=== PATIENT | male | born 1975 | race African-American/Black ===

== ENCOUNTER 2018-03-10 11:34 | Outpatient (CLI) | payer MEDICAID ==
[~2018-03-10 11:34] MED LIST: KEP500T PO; NO HOME MEDS
== END 2018-03-10 23:59 | disposition home or self-care (01) ==
LOC: RAD 11:34
DX: R41.3 Other amnesia (principal); Z87.891 Personal history of nicotine dependence
CPT/HCPCS: 95819

== ENCOUNTER 2019-02-05 04:26 | Inpatient (IN) | payer MEDICAID ==
[2019-02-05] VITALS (8 sets, daily range): BP systolic 124–145; BP diastolic 61–86
[~2019-02-05] VITALS: Ht 185.4 cm; Wt 79.0 kg
[2019-02-05] MEDS ORDERED: normal saline 1000ML IV soln IVB ONE ×2 (04:40→06:10)
[2019-02-05 05:04] LABS: EOSINOPHILS % (AUTO) 0 % (0-6); HEMOGLOBIN 14.6 g/dl (14.0-17.9)
[2019-02-05 05:05] LABS: BASOPHILS % (AUTO) 0.1 % (0-1); LYMPHOCYTES # (AUTO) 2.1 X10'3 (1.1-4.8); LYMPHOCYTES % (AUTO) 12.3 % (21-51); MEAN CORPUSCULAR HEMOGLOBIN 27.1 PG (27.0-31.0); MEAN CORPUSCULAR HGB CONC 32.3 g/dL (33.0-36.5); MEAN CORPUSCULAR VOLUME 83.9 FL (78-98); MEAN PLATELET VOLUME 11.4 FL (7.4-10.4); MONOCYTES # (AUTO) 1.4 X10'3 (0-0.9); MONOCYTES % (AUTO) 8.5 % (2-12); NEUTROPHILS # (AUTO) 13.5 X10'3 (1.8-7.7); NEUTROPHILS % (AUTO) 79.1 % (42-75); PLATELET COUNT 122 X10'3 (140-440); RED BLOOD COUNT 5.36 X10'6 (4.70-6.10); WHITE BLOOD COUNT 17.1 X10'3 (4.5-11.0)
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
[2019-02-05 05:20] LABS: ALANINE AMINOTRANSFERASE 34 U/L (12-78); ALBUMIN 4.7 G/DL (3.4-5.0); ALKALINE PHOSPHATASE 68 IU/L (46-116); ANION GAP 17 (8-16); ASPARTATE AMINO TRANSFERASE 44 U/L (10-37); BILIRUBIN,TOTAL 1.1 MG/DL (0.1-1.0); BLOOD UREA NITROGEN 22 MG/DL (7-18); BUN/CREATININE RATIO 14.3 (5.4-32.0); CALCIUM 10.4 MG/DL (8.5-10.1); CHLORIDE 108 MMOL/L (99-107); CREATINE KINASE 992 U/L (39-308); CREATININE 1.54 MG/DL (0.60-1.10); GLUCOSE 104 MG/DL (70-104); MAGNESIUM 2.5 MG/DL (1.5-2.4); SODIUM 150 MMOL/L (135-145); TOTAL CARBON DIOXIDE 25.4 MMOL/L (24-32); TOTAL PROTEIN 9.2 G/DL (6.4-8.2); eGFR 60 ML/MIN
[2019-02-05 05:29] LABS: ACETAMINOPHEN < 2.0 UG/ML (10-30); ETHANOL < 0.010 GM/DL (0.0-0.010)
[2019-02-05] MEDS ORDERED: ziprasidone IM 20mg inj **IM only IM ONE (05:30)
[2019-02-05] MEDS ORDERED: LORazepam 2 mg/ml vial IM ONE (05:30)
[2019-02-05 05:33] LABS: POTASSIUM 7.1 MMOL/L (3.5-5.1)
[2019-02-05] MEDS ORDERED: albuterol 2.5 MG/3 ML nebule NEB ONE (06:15)
[2019-02-05] MEDS ORDERED: dextrose 50%-water 50ml dispensing syringe IV ONE ×3 (06:15→08:15)
[2019-02-05] MEDS ORDERED: insulin regular, human 10 units/0.1 ml syringe IV ONE (06:15)
[2019-02-05] MEDS ORDERED: LORazepam 2 mg/ml vial IV PRN ×2 (06:55)
[2019-02-05] MEDS ORDERED: acetaminophen 325mg tablet PO PRN ×4 (06:55→09:30)
[2019-02-05] MEDS ORDERED: magnesium hydroxide 30ml (MOM) UD suspension PO PRN (06:55)
[2019-02-05] MEDS ORDERED: ziprasidone IM 20mg inj **IM only IM PRN (06:55)
[2019-02-05] MEDS ORDERED: ondansetron/PF 4mg/2ml inj IV PRN ×2 (06:55→09:30)
[2019-02-05 07:02] LABS: CLARITY,URINE SLIGHTLY CLOUDY (Clear); COLOR,URINE YELLOW (Yellow); GLUCOSE, URINE NEGATIVE (Neg); KETONES,URINE 15 mg/dl (Neg); LEUKOCYTE ESTERASE ,URINE NEGATIVE (Neg); NITRITES, URINE NEGATIVE (Neg); OCCULT BLOOD,URINE MODERATE (Neg); PROTEIN,URINE 30 mg/dl (Neg); UROBILINOGEN,URINE 0.2 E.U/dL (0.2-1.0)
[2019-02-05 07:04] LABS: UA COLLECTION TYPE FOLEY CATH
[2019-02-05 07:14] LABS: MUCUS STRANDS FEW /LPF (Neg); SQUAMOUS EPITHELIAL CELL,UR FEW /LPF (FEW)
[2019-02-05 07:16] LABS: SPERM MANY /HPF (NEGATIVE)
[2019-02-05 07:17] LABS: URINE AMPHETAMINE SCREEN POSITIVE (Neg); URINE BARBITUATE SCREEN NEGATIVE (Neg); URINE BENZODIAZEPINES SCREEN NEGATIVE (Neg); URINE CANNABINOID SCREEN POSITIVE (Neg); URINE COCAINE SCREEN NEGATIVE (Neg); URINE METHADONE SCREEN NEGATIVE (Neg); URINE OPIATE SCREEN NEGATIVE (Neg); URINE PHENCYCLIDINE SCREEN NEGATIVE (Neg)
[2019-02-05 07:20] LABS: BACTERIA,URINE 1+ /HPF (Neg)
[2019-02-05 07:25] LABS: ALANINE AMINOTRANSFERASE 33 U/L (12-78); ALBUMIN 3.6 G/DL (3.4-5.0); ALKALINE PHOSPHATASE 52 IU/L (46-116); ANION GAP 10 (8-16); ASPARTATE AMINO TRANSFERASE 48 U/L (10-37); BILIRUBIN,TOTAL 0.9 MG/DL (0.1-1.0); BLOOD UREA NITROGEN 22 MG/DL (7-18); BUN/CREATININE RATIO 16.7 (5.4-32.0); CALCIUM 8.1 MG/DL (8.5-10.1); CHLORIDE 104 MMOL/L (99-107); CREATININE 1.32 MG/DL (0.60-1.10); GLUCOSE 186 MG/DL (70-104); POTASSIUM 3.5 MMOL/L (3.5-5.1); SODIUM 139 MMOL/L (135-145); TOTAL CARBON DIOXIDE 24.7 MMOL/L (24-32); TOTAL PROTEIN 7.1 G/DL (6.4-8.2); eGFR 71 ML/MIN
--- NOTE | 2019-02-05 07:29 | NUR ---
CHECKED BG AND IT WAS 20, CHARGE NURSE NOTIFIED, GAVE AN AMP OF DEXTROSE 50, WILL RE-CHECK BG IN 15 MINUTES, 2ND 18 GAUGE LINE IS BEING PLACED.
--- NOTE | 2019-02-05 07:42 | NUR ---
BLOOD GLUCOSE WAS RE-CHECKED AND IS NOW 91, CHARGE NURSE IS AWARE. WILL NOTIFY .
[2019-02-05] MEDS: dextrose 5%-1/2 normal saline 1,000 ML IV SCH ×2 (07:49→14:55)
[2019-02-05] MEDS ORDERED: flumazenil 0.1 mg/ml inj. IV ONE (08:00)
--- NOTE | 2019-02-05 08:05 | NUR ---
B, DR. ALVARADO NOTIFIED OBTAINED VERBAL FOR D50, AND INCREASE RATE TO 250ML/HR OF THE 5% DEXTROSE 1/2 NS. ICU MD GAVE VERBAL FOR D10 NS AT 100ML
[2019-02-05] MEDS ORDERED: sodium chloride inj. 154 MEQ in Dextrose 10%-water IV solution 961.5 ML IV SCH (08:10)
--- NOTE | 2019-02-05 09:00 | NUR ---
REMOVED ONE ANKLE FROM THE RESTRAINTS, WILL CONTINUE TO MONITOR. PT. IS IN NO DISTRESS.
[2019-02-05] MEDS: pantoprazole 40 MG vial IV SCH (09:10)
[2019-02-05] MEDS ORDERED: magnesium 2GM in 50ml NS 50 ML IV PRN (09:30)
[2019-02-05] MEDS ORDERED: magnesium 4gm in 100ml NS 100 ML IV PRN (09:30)
[2019-02-05] MEDS ORDERED: morphine 2 MG/ML inj. syringe IV PRN (09:30)
[2019-02-05] MEDS ORDERED: potassium Cl 20 mEq SR tablet PO PRN (09:30)
[2019-02-05] MEDS ORDERED: cefepime 1GM in D5W 50mL 50 ML IV ONE (09:30)
[2019-02-05] MEDS ORDERED: morphine 4 MG/ML inj SYRINge IV PRN (09:30)
[2019-02-05] MEDS ORDERED: magnesium Cl slow-release 64mg tablet PO PRN (09:30)
[2019-02-05] MEDS ORDERED: sodium phosphate inj. 15 MMOL in dextrose 5%-water 150 ML IV PRN (09:30)
[2019-02-05] MEDS ORDERED: vancomycin/NS 1 GM ADD-VANTAGE 250 ML IV ONE (09:30)
[2019-02-05] MEDS ORDERED: sodium phosphate inj. 30 MMOL in dextrose 5%-water 250 ML IV PRN (09:30)
[2019-02-05] MEDS ORDERED: Neutra Phos packet PO PRN (09:30)
--- NOTE | 2019-02-05 09:35 | NUR ---
BEHAVIORAL RESTRAINTS WERE REMOVED FROM PT. PT. IS NOT VIOLENT, BUT IS SLEEPING. B
[2019-02-05] MEDS ORDERED: ARIP5TAB60 PO (11:36)
[2019-02-05] MEDS ORDERED: SERT100T10 PO (11:36)
[2019-02-05] MEDS ORDERED: ARIP20TA4 PO (11:36)
--- NOTE | 2019-02-05 12:32 | NUR ---
First set of blood cultures obtained, will start abx
--- NOTE | 2019-02-05 13:52 | NUR ---
Patient in room ICU 2046. I have received report from Lita BACH and had the opportunity to ask questions and assume patient care.
[2019-02-05] MEDS: cefepime 1GM in D5W 50mL 50 ML IV SCH ×2 (16:10→23:59)
--- NOTE | 2019-02-05 16:36 | NUR ---
Right AC IV unable to flush/draw, pt complains of pain when attempting to flush. IV removed with cannula intact, dressing applied to site.
--- NOTE | 2019-02-05 18:22 | NUR ---
Problems reprioritized. Patient report given, questions answered & plan of care reviewed with Yuni BACH.
--- NOTE | 2019-02-05 18:30 | NUR ---
Patient in room ICU 2046. I have received report from ISREAL Early and had the opportunity to ask questions and assume patient care.
[2019-02-05] MEDS: heparin, porcine 5000 units/ml vial SQ SCH (20:21)
[2019-02-05] MEDS: sodium chloride inj. 154 MEQ in Dextrose 10%-water IV solution 1,000.0 ML IV SCH (20:21)
[2019-02-05] MEDS: morphine 2 MG/ML inj. syringe IV PRN (20:48)
[2019-02-06] VITALS (17 sets, daily range): BP systolic 113–145; BP diastolic 65–85
[2019-02-06] MEDS: vancomycin/NS 1 GM ADD-VANTAGE 250 ML IV SCH (01:31)
[2019-02-06 05:34] LABS: ALANINE AMINOTRANSFERASE 65 U/L (12-78); ALBUMIN 3.3 G/DL (3.4-5.0); ALBUMIN/GLOBULIN RATIO 0.9 (1.1-1.5); ALKALINE PHOSPHATASE 52 IU/L (46-116); ANION GAP 9 (8-16); ASPARTATE AMINO TRANSFERASE 195 U/L (10-37); BILIRUBIN,TOTAL 1.2 MG/DL (0.1-1.0); BLOOD UREA NITROGEN 10 MG/DL (7-18); BUN/CREATININE RATIO 9.9 (5.4-32.0); CALCIUM 7.8 MG/DL (8.5-10.1); CHLORIDE 109 MMOL/L (99-107); CREATININE 1.01 MG/DL (0.60-1.10); GLUCOSE 116 MG/DL (70-104); MAGNESIUM 2.4 MG/DL (1.5-2.4); PHOSPHORUS 3.4 MG/DL (2.3-4.5); POTASSIUM 3.3 MMOL/L (3.5-5.1); SODIUM 143 MMOL/L (135-145); TOTAL CARBON DIOXIDE 25.5 MMOL/L (24-32); TOTAL PROTEIN 6.8 G/DL (6.4-8.2); eGFR > 90 ML/MIN
[2019-02-06] MEDS: morphine 2 MG/ML inj. syringe IV PRN (05:36)
[2019-02-06] MEDS: sodium chloride inj. 154 MEQ in Dextrose 10%-water IV solution 1,000.0 ML IV SCH (06:11)
--- NOTE | 2019-02-06 06:29 | NUR ---
Problems reprioritized. Patient report given, questions answered & plan of care reviewed with ISREAL Hsu.
--- NOTE | 2019-02-06 06:42 | NUR ---
Patient in room ICU 2046. I have received report from Yuni BACH and had the opportunity to ask questions and assume patient care. Patient awake in bed with no complaints at this time. Sitter present bedside. All immediate needs met.
[2019-02-06 07:21] LABS: BASOPHILS % (AUTO) 0.2 % (0-1); LYMPHOCYTES # (AUTO) 2.1 X10'3 (1.1-4.8); WHITE BLOOD COUNT 14.8 X10'3 (4.5-11.0)
[2019-02-06 07:23] LABS: EOSINOPHILS % (AUTO) 0.1 % (0-6); HEMATOCRIT 41.6 % (42.0-52.0); HEMOGLOBIN 13.7 g/dl (14.0-17.9); LYMPHOCYTES % (AUTO) 14.5 % (21-51); MEAN CORPUSCULAR HEMOGLOBIN 26.7 PG (27.0-31.0); MEAN CORPUSCULAR VOLUME 81.1 FL (78-98); MEAN PLATELET VOLUME 11.7 FL (7.4-10.4); MONOCYTES # (AUTO) 1.5 X10'3 (0-0.9); MONOCYTES % (AUTO) 10.2 % (2-12); NEUTROPHILS # (AUTO) 11.1 X10'3 (1.8-7.7); PLATELET COUNT 108 X10'3 (140-440); RED BLOOD COUNT 5.12 X10'6 (4.70-6.10); RED CELL DISTRIBUTION WIDTH 15.8 % (11.5-14.5)
[2019-02-06 07:25] LABS: GIANT PLATELET FEW; LARGE PLATELETS MODERATE; PLATELET ESTIMATE DECREASED
[2019-02-06] MEDS ORDERED: pantoprazole 40 MG vial IV SCH (08:00)
[2019-02-06] MEDS: pantoprazole 40 MG vial IV SCH (08:28)
[2019-02-06] MEDS: heparin, porcine 5000 units/ml vial SQ SCH ×2 (08:29→20:06)
[2019-02-06] MEDS: potassium Cl 20 mEq SR tablet PO PRN ×3 (08:30→20:57)
[2019-02-06] MEDS: cefepime 1GM in D5W 50mL 50 ML IV SCH ×2 (08:30→15:17)
--- NOTE | 2019-02-06 10:30 | NUR ---
Per Dr. Alatorre discontinued farah catheter. Patient tolerated well. Patient voided spontaneously 150 ml.
[2019-02-06] MEDS: morphine 4 MG/ML inj SYRINge IV PRN ×2 (12:54→20:05)
--- NOTE | 2019-02-06 13:01 | NUR ---
Patient has michael in his walled. Offered to have it stored in hospital safe. Patient declined.
[2019-02-06] MEDS: sertraline 50mg tablet PO SCH (13:56)
--- NOTE | 2019-02-06 18:29 | NUR ---
Problems reprioritized. Patient report given, questions answered & plan of care reviewed with ISREAL Castro. Patient stable at transfer of care.
--- NOTE | 2019-02-06 18:30 | NUR ---
Pt placed on Tele monitor and helped to wheelchair. Aid helped push pt, belongings and meds transferred with pt. Report given by day shift RN to receiving SHERON BACH. Addendum: 02/06/19 at 2048 by Grisel Tanner RN SBAR and Unit to Unit Transfer updated.
--- NOTE | 2019-02-06 18:30 | NUR ---
Problems reprioritized. Patient report given to Grisel BACH, questions answered & plan of care reviewed with . Patient resting comfortably in bed
--- NOTE | 2019-02-06 18:31 | NUR ---
Student documentation: I have reviewed and agree with all interventions, assessments performed and documented by Ros BACH. Student Medication Administration: For this medication-pass time frame, all medication were reviewed, dispensed, administered and documented per hospital policy by Ros BACH.
--- NOTE | 2019-02-06 18:42 | NUR ---
PT ARRIVED FROM ICU. PT AMBULATED TO BED FROM W/O PROBLEM. RECEIVED REPORT FROM ISREAL CALLAHAN PRIOR TO PT'S ARRIVAL.
[2019-02-06] MEDS ORDERED: aripiprazole 5mg tablet PO SCH (21:00)
[2019-02-06] MEDS ORDERED: ARIPIPRAZOLE 10 MG TABLET PO SCH (21:00)
[2019-02-06] MEDS ORDERED: VANCOMYCIN LEVEL IV ONE (23:30)
[2019-02-07] MEDS: cefepime 1GM in D5W 50mL 50 ML IV SCH ×3 (00:03→16:00)
--- NOTE | 2019-02-07 00:42 | NUR ---
STILL WAITING ANSWER FROM PHARMACY REGARDING DREWO TROUGH
[2019-02-07] MEDS: morphine 4 MG/ML inj SYRINge IV PRN (00:58)
[2019-02-07] MEDS: vancomycin/NS 1 GM ADD-VANTAGE 250 ML IV SCH ×3 (01:00→16:17)
[2019-02-07 06:00] VITALS: BP 119/55
[2019-02-07 06:05] LABS: BASOPHILS % (AUTO) 0.1 % (0-1); EOSINOPHILS % (AUTO) 0.3 % (0-6); MEAN CORPUSCULAR HEMOGLOBIN 27.5 PG (27.0-31.0); NEUTROPHILS # (AUTO) 6.4 X10'3 (1.8-7.7); NEUTROPHILS % (AUTO) 65.7 % (42-75)
[2019-02-07 06:07] LABS: HEMATOCRIT 39.3 % (42.0-52.0); LYMPHOCYTES # (AUTO) 2.3 X10'3 (1.1-4.8); LYMPHOCYTES % (AUTO) 23.5 % (21-51); MEAN CORPUSCULAR HGB CONC 33.2 g/dL (33.0-36.5); MEAN CORPUSCULAR VOLUME 82.9 FL (78-98); MEAN PLATELET VOLUME 11.6 FL (7.4-10.4); MONOCYTES % (AUTO) 10.4 % (2-12); PLATELET COUNT 106 X10'3 (140-440); RED BLOOD COUNT 4.74 X10'6 (4.70-6.10); RED CELL DISTRIBUTION WIDTH 15.8 % (11.5-14.5); WHITE BLOOD COUNT 9.8 X10'3 (4.5-11.0)
--- NOTE | 2019-02-07 06:14 | NUR ---
Patient in room ORTHO 4012. I have received report from and had the opportunity to ask questions and assume patient care ISREAL Castro.
[2019-02-07 06:30] LABS: ALANINE AMINOTRANSFERASE 61 U/L (12-78); ALBUMIN/GLOBULIN RATIO 0.8 (1.1-1.5); ALKALINE PHOSPHATASE 52 IU/L (46-116); ANION GAP 7 (8-16); ASPARTATE AMINO TRANSFERASE 121 U/L (10-37); BILIRUBIN,TOTAL 0.6 MG/DL (0.1-1.0); BLOOD UREA NITROGEN 8 MG/DL (7-18); BUN/CREATININE RATIO 7.9 (5.4-32.0); CALCIUM 8.3 MG/DL (8.5-10.1); CHLORIDE 107 MMOL/L (99-107); CREATININE 1.01 MG/DL (0.60-1.10); GLUCOSE 98 MG/DL (70-104); MAGNESIUM 2.1 MG/DL (1.5-2.4); PHOSPHORUS 3.5 MG/DL (2.3-4.5); POTASSIUM 4.1 MMOL/L (3.5-5.1); SODIUM 141 MMOL/L (135-145); TOTAL CARBON DIOXIDE 27.4 MMOL/L (24-32); TOTAL PROTEIN 6.6 G/DL (6.4-8.2); eGFR > 90 ML/MIN
--- NOTE | 2019-02-07 06:43 | NUR ---
Problems reprioritized. Patient report given, questions answered & plan of care reviewed with ISREAL DEL TORO.
[2019-02-07 07:07] LABS: LARGE PLATELETS FEW; PLATELET ESTIMATE DECREASED
[2019-02-07] MEDS ORDERED: pantoprazole 40mg Tablet.DR PO SCH (07:30)
[2019-02-07] MEDS: sertraline 50mg tablet PO SCH (09:11)
[2019-02-07] MEDS: heparin, porcine 5000 units/ml vial SQ SCH (09:12)
[2019-02-07] MEDS ORDERED: bisacodyl 10mg suppository rectal RC PRN (09:30)
[2019-02-07 10:00] VITALS: BP 113/62
[2019-02-07] MEDS ORDERED: DOXY100C2 PO (11:33)
--- NOTE | 2019-02-07 11:46 | NUR ---
Pt infiltrated; ok by pharmacy to hang late Enzo. Next trough in the AM
--- NOTE | 2019-02-07 16:00 | NUR ---
DISCHARGE: VSS, denies pain, SOB, resp distress, N/V vertigo. All DC documents signed, copies of recap given to pt. Belongings w/pt. Pt given clothing. pt escorted [place] by [place].
[2019-02-07] MEDS ORDERED: lactobacillus rhamnosus 10,000 MMU CELLS/CAPSULE PO SCH (20:00)
[2019-02-08] MEDS ORDERED: VANCOMYCIN LEVEL IV ONE (00:30)
== END 2019-02-07 16:30 | disposition home or self-care (01) | DRG 469 ==
LOC: ER 04:27 → ED HOLD 07:11 → ICU 2S 11:13 → ORTHO 4S 02-06 18:45
PROVIDERS: ATTEND Internal Medicine Critical Care Medicine
DX: N17.9 Acute kidney failure, unspecified (principal); M62.82 Rhabdomyolysis; E83.51 Hypocalcemia; E86.0 Dehydration; F23 Brief psychotic disorder; Z79.899 Other long term (current) drug therapy
CPT/HCPCS: 36415; 80053; 80305; 80320; 80329; 81001; 82550; 82948; 83605; 83735; 83874; 84100; 84145; 85025; 87040; 87081; 87088; 93005; 94640; 94760; 96372; 96374; 96375; 97110; 97116; 97161; 97530; 99291; C9113; G0378; J0692; J1644; J1815; J2060; J2270; J3370; J3486; J3490; J7131